=== PATIENT | female | born 1955 | race Two or more races ===

== ENCOUNTER 2019-09-12 01:36 | Inpatient (IN) | payer MEDICARE, OTHER ==
[~2019-09-12] VITALS: Ht 154.9 cm; Wt 62.8 kg
--- NOTE | 2019-09-12 01:45 | NUR ---
PT [facility] C/C CP RADIATING TO L SHOULDER AND NECK X20MIN, 0.4 NITRO AND 324 ASPIRIN GIVEN PER EMS. PT AOX4. PT ON MONITOR IN BED 4. WILL CONTINUE TO MONITOR.
--- NOTE | 2019-09-12 02:14 | NUR ---
PHLEB AT BEDSIDE FOR LAB DRAW
[2019-09-12 02:34] LABS: BASOPHILS # (AUTO) 0.1 /CMM (0.0-0.2); BASOPHILS % (AUTO) 4.7 % (0.0-2.0); EOSINOPHILS % (AUTO) 6.5 % (0.0-6.0); HEMATOCRIT 37 % (33-45); LYMPHOCYTES # (AUTO) 0.8 /CMM (0.8-4.8); LYMPHOCYTES % (AUTO) 26.2 % (20.0-44.0); MEAN CORPUSCULAR HGB CONC 30 g/dl (31.0-36.0); MEAN CORPUSCULAR VOLUME 87 fL (82-100); MONOCYTES # (AUTO) 0.4 /CMM (0.1-1.30); MONOCYTES % (AUTO) 12.7 % (2.0-12.0); NEUTROPHILS # (AUTO) 1.5 /CMM (1.8-8.9); NEUTROPHILS % (AUTO) 49.9 % (43.0-81.0); PLATELET COUNT (AUTO) 127 /CMM (150-450); RED BLOOD CELL COUNT(AUTO) 4.21 MIL/uL (4.0-5.2)
--- NOTE | 2019-09-12 02:35 | NUR ---
RADIOLOGY AT BEDSIDE FOR XRAY
[2019-09-12 02:51] LABS: CALCIUM, SERUM 9.9 mg/dL (8.5-10.1); CREATININE 4.5 mg/dL (0.6-1.3); POTASSIUM 3.7 mmol/L (3.5-5.1)
[2019-09-12 03:03] LABS: ALBUMIN 3.4 g/dL (3.4-5.0); BILIRUBIN,DIRECT 0.3 mg/dL (0.0-0.2); BILIRUBIN,TOTAL 0.6 mg/dL (0.2-1.0); TOTAL PROTEIN, SERUM 7.3 g/dL (6.4-8.2)
[2019-09-12] MEDS ORDERED: CLOPIDOGREL BISULFATE 75 MG TABLET ONE (04:27)
[2019-09-12] MEDS ORDERED: CLOPIDOGREL BISULFATE 75 MG TABLET PO ONE (04:30)
--- NOTE | 2019-09-12 04:30 | NUR ---
SPOKE WITH AMADA FROM [facility] AND INFORMED PT WILL BE ADMITTED
--- NOTE | 2019-09-12 04:52 | NUR ---
REPORT GIVEN TO MARVA HANCOCK FOR DANIAL
--- NOTE | 2019-09-12 05:07 | NUR ---
PT TRANSFERRED PER ACLS PROTOCOL
[2019-09-12 05:10] VITALS: BP 109/64
--- NOTE | 2019-09-12 05:10 | NUR ---
RN OPEN NOTES RECEIVED PATIENT FROM ER VIA PAULINA. A/OX3. PATIENT TURTLE MOUNTAIN. NO SIGNS OF DISTRESS OR DISCOMFORT. BREATHING EVEN AND UNLABORED. ON 2LPM O2 VIA NC. IV ACCESS IN LFA, PATENT AND INTACT, NO SIGNS OF REDNESS OR INFILTRATION. ORIENTED PATIENT TO UNIT AND ROOM. ATTACHED TELE MONITOR WITH AFIB 66 NOTED. BED IN LOW LOCKED POSITION WITH SIDE RAILS X2. CALL LIGHT WITHIN REACH. WILL CONTINUE TO MONITOR.
[2019-09-12] MEDS ORDERED: ACET650T10 PO (07:06)
[2019-09-12] MEDS ORDERED: METO25TA6 PO ×2 (07:06)
[2019-09-12] MEDS ORDERED: AMIN30LI27 PO (07:06)
[2019-09-12] MEDS ORDERED: CLOP75TA15 PO (07:06)
[2019-09-12] MEDS ORDERED: HYDR4TAB4 PO (07:06)
[2019-09-12] MEDS ORDERED: ZOLP5TAB2 PO (07:06)
[2019-09-12] MEDS ORDERED: LEVO112T5 PO (07:06)
[2019-09-12] MEDS ORDERED: SIMV20TA6 PO (07:06)
[2019-09-12] MEDS ORDERED: VIT1TABL46 PO (07:06)
[2019-09-12] MEDS ORDERED: INSU100I30 SQ (07:06)
[2019-09-12] MEDS ORDERED: ASCO500T9 PO (07:06)
[2019-09-12] MEDS ORDERED: INSU100V30 SUBCUT ×2 (07:06)
[2019-09-12] MEDS ORDERED: ISOS5TAB3 PO ×2 (07:06)
[2019-09-12] MEDS ORDERED: Medication Not On Formulary EA (Acetaminophen 650 MG) PO PRN (07:30)
[2019-09-12] MEDS ORDERED: ZOLPIDEM TARTRATE 5 MG TABLET PO PRN (07:30)
[2019-09-12] MEDS ORDERED: ACETAMINOPHEN 325 MG TABLET PO PRN (07:30)
[2019-09-12] MEDS ORDERED: DEXTROSE 50%-WATER 50 ML DISP.SYRIN IV PRN (07:30)
[2019-09-12] MEDS ORDERED: ONDANSETRON HCL/PF 4 MG/2 ML VIAL IVP PRN (07:30)
[2019-09-12] MEDS ORDERED: POLYETHYLENE GLYCOL 3350 17 GM POWD.PACK PO PRN (07:30)
--- NOTE | 2019-09-12 07:30 | NUR ---
RN CLOSING NOTES PATIENT RESTING COMFORTABLY IN BED, EASILY AROUSABLE. A/OX3. NO SIGNS OF DISTRESS OR DISCOMFORT. BREATHING EVEN AND UNLABORED. ON 2LPM O2 VIA NC. ON TELE MONITORING WITH AFIB 68 NOTED. IV ACCESS LFA, PATENT AND INTACT, NO SIGNS OF REDNESS OR INFILTRATION. ALL NEEDS MET. NO SIGNIFICANT CHANGES THROUGH THE NIGHT. PATIENT KEPT CLEAN DRY AND COMFORTABLE. ASSISTED WITH REPOSITIONED Q2H AND PRN. BED IN LOW LOCKED POSITION WITH SIDE RAILS X2. CALL LIGHT WITHIN REACH. ENDORSED TO AM SHIFT FOR DANIAL.
--- NOTE | 2019-09-12 07:49 | NUR ---
PIPE LINE WALKER OPENING NOTES Received patient on 3L nasal cannula, no sob noted, patient denies pain at this time and states that she has no chest pain. LFA 20 remains patent at this time. Bed at the lowest setting, call light within reach, side rails up x2.
[2019-09-12 07:58] LABS: BASOPHILS # (AUTO) 0.1 /CMM (0.0-0.2); EOSINOPHILS % (AUTO) 6.2 % (0.0-6.0); HEMATOCRIT 37 % (33-45); HEMOGLOBIN 11.1 g/dL (11.5-14.8); LYMPHOCYTES # (AUTO) 0.9 /CMM (0.8-4.8); LYMPHOCYTES % (AUTO) 29.2 % (20.0-44.0); MEAN CORPUSCULAR HGB CONC 30 g/dl (31.0-36.0); MEAN CORPUSCULAR VOLUME 87 fL (82-100); MONOCYTES # (AUTO) 0.5 /CMM (0.1-1.30); MONOCYTES % (AUTO) 16.1 % (2.0-12.0); NEUTROPHILS # (AUTO) 1.4 /CMM (1.8-8.9); NEUTROPHILS % (AUTO) 46.5 % (43.0-81.0); PLATELET COUNT (AUTO) 116 /CMM (150-450); RED BLOOD CELL COUNT(AUTO) 4.25 MIL/uL (4.0-5.2)
[2019-09-12 08:00] VITALS: BP 112/67
[2019-09-12 08:01] LABS: CALCIUM, SERUM 9.3 mg/dL (8.5-10.1); CARBON DIOXIDE 29 mmol/L (21-32); CHLORIDE 96 mmol/L (98-107); CREATININE 4.5 mg/dL (0.6-1.3); GLUCOSE 51 mg/dL (74-106); POTASSIUM 3.6 mmol/L (3.5-5.1); SODIUM SERUM 133 mmol/L (136-145); UREA NITROGEN, BLOOD 28 mg/dL (7-18)
[2019-09-12 08:07] LABS: ALANINE AMINOTRANSFERASE 8 U/L (12-78); ALBUMIN 3.1 g/dL (3.4-5.0); ALKALINE PHOSPHATASE 186 U/L (46-116); ASPARTATE AMINOTRANSFERASE 18 U/L (15-37); BILIRUBIN,TOTAL 0.5 mg/dL (0.2-1.0); LIPASE 56 U/L (73-393); MAGNESIUM 1.9 mg/dL (1.8-2.4); PHOSPHORUS 4.2 mg/dL (2.5-4.9); TOTAL PROTEIN, SERUM 6.7 g/dL (6.4-8.2)
--- NOTE | 2019-09-12 08:17 | NUR ---
RN NOTES B/S level of 44, give 2 cartons of OJ juice and dextrose. Patient a/o x4 at this time.
[2019-09-12] MEDS: BLOOD SUGAR DIAGNOSTIC 1 EACH STRIP IN SCH ×4 (08:18→21:13)
[2019-09-12] MEDS: ASCORBIC ACID 500 MG TABLET PO SCH (08:32)
[2019-09-12] MEDS: LEVOTHYROXINE SODIUM 112 MCG TABLET PO SCH (08:32)
[2019-09-12] MEDS: PANTOPRAZOLE 40 MG TABLET.DR PO SCH (08:32)
[2019-09-12] MEDS: DOCUSATE SODIUM 100 MG CAPSULE PO SCH ×2 (08:33→17:00)
[2019-09-12] MEDS: METOPROLOL TARTRATE 25 MG TABLET PO SCH ×2 (08:34→16:58)
[2019-09-12] MEDS: INSULIN GLARGINE, 100 UNIT/ML CARTRIDGE SQ SCH (08:36)
[2019-09-12 08:38] LABS: CHOLESTEROL 85 mg/dL (<200); HDL CHOLESTEROL 54 mg/dL (40-60); LDL 26 mg/dL (0-99); THYROID STIMULATING HORMONE 2.961 uIU/mL (0.358-3.74); TRIGLYCERIDES 32 mg/dL (30-150)
--- NOTE | 2019-09-12 08:45 | NUR ---
RN NOTES Blood sugar of 139 at this time. Patient able to eat breakfast at this time. Refused BP meds.
[2019-09-12] MEDS: PROSOURCE / PROSTAT (PYXIS) 30 ML UDC PO SCH ×2 (09:00→17:00)
--- NOTE | 2019-09-12 11:52 | NUR ---
RN NOTES patient refused insulin on a blood sugar of 200 at this time, stated maybe later.
[2019-09-12 12:00] VITALS: BP 118/60
--- NOTE | 2019-09-12 14:30 | NUR ---
MARVA Briseno from radiology placed an 18 gauge on patients left shoulder to be used for CT angio.
[2019-09-12] MEDS ORDERED: IOHEXOL-350 100 ML VIAL IV ONE (14:31)
[2019-09-12] MEDS ORDERED: METOPROLOL TARTRATE INJ 5 MG/5 ML AMPUL ONE (15:56)
--- NOTE | 2019-09-12 16:28 | NUR ---
RN CTCA PT TAKEN TO RADIOLOGY BY PAULINA FOR PROCEDURE. PT HARD OF HEARING, UNABLE TO FOLLOW COMMANDS. NEW IV LINE STARTED BY EZEKIEL. ATRIAL FIB WITH VARIABLE RATE 70-120. CASE DISCUSSED BY EZEKIEL WITH DR SHAH. GIVEN 2 SPRAYS OF NTG, NO METOPROLOL GIVEN ORDERED. COMPLETED STUDY. SENT BACK TO UNIT WITH MONITOR.
--- NOTE | 2019-09-12 17:36 | NUR ---
RN NOTES Patient refusing dialysis at this time
[2019-09-12] MEDS: CLOPIDOGREL BISULFATE 75 MG TABLET PO SCH (18:00)
[2019-09-12] MEDS: VIT B CMPLX 3/FA/VIT C/BIOTIN 1 TAB TABLET PO SCH (18:00)
--- NOTE | 2019-09-12 18:02 | NUR ---
RN NOTES patient refused all medications and insulin. Asked patient x3 and patient refused medications and insulin.
--- NOTE | 2019-09-12 18:40 | NUR ---
RN MS CLOSING NOTES Patient remains on 3l nasal cannula, no sob noted, patient denies pain at this time. Patient remains a/o x3 and refused medications. Asked patient 3x and still refused medications. Patient refused insulin as well, explained the benefits of insulin to the patient and stated that "she doesn't give a fuck". Patient refused HD as well, along with troponin draw from the lab. Bed at the lowest setting, call light within reach, side rails up x2. Will give report to NOC RN for DANIAL bedside.
--- NOTE | 2019-09-12 19:15 | NUR ---
RN OPENING NOTES PATIENT AWAKE SITTING IN CHAIR. A/OX3. NO SIGNS OF DISTRESS OR DISCOMFORT. BREATHING EVEN AND UNLABORED. ON 2LPM O2 VIA NC. ON TELE MONITORING WITH AFIB 98 NOTED. IV ACCESS LFA, L SHOULDER AND L UPPER ARM, PATENT AND INTACT, NO SIGNS OF REDNESS OR INFILTRATION. BED IN LOW LOCKED POSITION WITH SIDE RAILS X2. CALL LIGHT WITHIN REACH. WILL CONTINUE TO MONITOR.
[2019-09-12 20:00] VITALS: BP 128/43
[2019-09-12] MEDS: INSULIN REGULAR, HUMAN 100 UNIT/ML 3 ML VIAL SQ PRN (21:09)
[2019-09-12] MEDS: SIMVASTATIN 20 MG TABLET PO SCH (21:16)
[2019-09-13] VITALS: BP 130/67
[2019-09-13] MEDS: HYDROMORPHONE HCL 2 MG TABLET PO PRN ×2 (00:16→08:35)
[2019-09-13 06:24] LABS: BASOPHILS # (AUTO) 0.1 /CMM (0.0-0.2); BASOPHILS % (AUTO) 3.2 % (0.0-2.0); EOSINOPHILS % (AUTO) 3.9 % (0.0-6.0); HEMATOCRIT 35 % (33-45); HEMOGLOBIN 10.7 g/dL (11.5-14.8); LYMPHOCYTES # (AUTO) 0.5 /CMM (0.8-4.8); LYMPHOCYTES % (AUTO) 18.8 % (20.0-44.0); MEAN CORPUSCULAR HGB CONC 31 g/dl (31.0-36.0); MEAN CORPUSCULAR VOLUME 86 fL (82-100); MONOCYTES # (AUTO) 0.3 /CMM (0.1-1.30); MONOCYTES % (AUTO) 12.2 % (2.0-12.0); NEUTROPHILS # (AUTO) 1.7 /CMM (1.8-8.9); NEUTROPHILS % (AUTO) 61.9 % (43.0-81.0); PLATELET COUNT (AUTO) 124 /CMM (150-450); RED BLOOD CELL COUNT(AUTO) 4.04 MIL/uL (4.0-5.2); WHITE BLOOD COUNT (AUTO) 2.8 K/uL (4.3-11.0)
[2019-09-13 06:32] LABS: CALCIUM, SERUM 9.6 mg/dL (8.5-10.1); CREATININE 5.4 mg/dL (0.6-1.3)
[2019-09-13] MEDS: BLOOD SUGAR DIAGNOSTIC 1 EACH STRIP IN SCH ×4 (06:35→21:52)
--- NOTE | 2019-09-13 06:36 | NUR ---
RN CLOSING NOTES PATIENT AWAKE IN CHAIR. A/OX3. NO SIGNS OF DISTRESS OR DISCOMFORT. BREATHING EVEN AND UNLABORED. ON 2LPM O2 VIA NC. ON TELE MONITORING WITH AFIB 98 NOTED. IV ACCESS LFA, PATENT AND INTACT, NO SIGNS OF REDNESS OR INFILTRATION. ALL NEEDS MET. NO SIGNIFICANT CHANGES THROUGH THE NIGHT. PATIENT KEPT CLEAN DRY AND COMFORTABLE. ASSISTED WITH REPOSITIONED Q2H AND PRN. BED IN LOW LOCKED POSITION WITH SIDE RAILS X2. CALL LIGHT WITHIN REACH. WILL ENDORSE TO AM SHIFT FOR DANIAL.
[2019-09-13 08:00] VITALS: BP 147/58
--- NOTE | 2019-09-13 08:00 | NUR ---
HOME INSPECTOR AM NOTES PATIENT AWAKE SITTING IN CHAIR. A/OX3. NO SIGNS OF DISTRESS OR DISCOMFORT. BREATHING EVEN AND UNLABORED. ON 2LPM O2 VIA NC. ON TELE MONITORING WITH AFIB 86 NOTED. IV ACCESS LFA, L SHOULDER AND L UPPER ARM, PATENT AND INTACT, NO SIGNS OF REDNESS OR INFILTRATION. BED IN LOW LOCKED POSITION WITH SIDE RAILS X2. CALL LIGHT WITHIN REACH. WILL CONTINUE TO MONITOR.
[2019-09-13] MEDS: INSULIN GLARGINE, 100 UNIT/ML CARTRIDGE SQ SCH (09:00)
[2019-09-13] MEDS ORDERED: REGADENOSON 0.4 MG/5 ML DISP.SYRIN IVP ONE (09:00)
[2019-09-13] MEDS: METOPROLOL TARTRATE 25 MG TABLET PO SCH ×2 (09:00→17:00)
[2019-09-13] MEDS: PANTOPRAZOLE 40 MG TABLET.DR PO SCH (09:15)
[2019-09-13] MEDS: ASCORBIC ACID 500 MG TABLET PO SCH (09:15)
[2019-09-13] MEDS: DOCUSATE SODIUM 100 MG CAPSULE PO SCH ×2 (09:15→17:16)
[2019-09-13] MEDS: LEVOTHYROXINE SODIUM 112 MCG TABLET PO SCH (09:15)
[2019-09-13] MEDS: PROSOURCE / PROSTAT (PYXIS) 30 ML UDC PO SCH ×2 (09:16→17:18)
--- NOTE | 2019-09-13 09:30 | NUR ---
PT WAS BROUGHT DOWN FOR CARDIAC STRESS TEST PROCEDURE.WITH STABLE V/S.PT'S PO MEDS WILL BE GIVEN AFTER THE CARDIAC STRESS TEST PROCEDURE.
--- NOTE | 2019-09-13 11:00 | NUR ---
PT WAS BROUGHT UP FROM NUCLEAR MED FOR ECHO PROCEDURE.WILL BE BROUGHT DOWN FOR NM STRESS TEST.WITH STABLE V/S.
--- NOTE | 2019-09-13 11:30 | NUR ---
PT WAS BROUGHT DOWN AGAIN FOR THE NUCLEAR MED STRESS TEST PROCEDURE.WILL GIVE INSULIN LATER AFTER THE NM STRESS TEST PROCEDURE.
--- NOTE | 2019-09-13 11:43 | NUR ---
WOUND CARE CONSULT: PT PRESENTS WITH RASH TO SACRAL/BUTTOCKS AND PERINEAL AREAS, DUSKY COLOR TO RT FOOT, THICKENED SKIN TO BILATERAL LOWER LEGS WITH PITTING EDEMA AND DRY ESCHAR TO LEFT HEEL AND TO LEFT 4TH TOE, PRESENT ON ADMISSION. RECOMMEND DPM CONSULT. DPM CONSULT REQUESTED AND DR HARDWICK NOTIFIED. RECOMMENDATIONS MADE FOR SKIN PROTECTION AND RASH. DISCUSSED WITH NURSING STAFF. WILL SEE PRN. RENEE IN AGREEMENT WITH PLAN OF CARE. DEFER TO DPM FOR LOWER EXTREMITIES. Addendum: 09/13/19 at 1145 by NIC VERDUZCO WNDNU Amended: Links added.
[2019-09-13] MEDS ORDERED: Z GUARD REMEDY 2 OZ OINT TP PRN (12:00)
[2019-09-13] MEDS ORDERED: Z GUARD REMEDY 2 OZ OINT TP SCH (12:00)
[2019-09-13 16:00] VITALS: BP 92/53
[2019-09-13] MEDS ORDERED: CLOTRIMAZOLE 1% 15 GM TUBE TP SCH (17:00)
[2019-09-13] MEDS: VIT B CMPLX 3/FA/VIT C/BIOTIN 1 TAB TABLET PO SCH (17:16)
[2019-09-13] MEDS: CLOPIDOGREL BISULFATE 75 MG TABLET PO SCH (17:16)
[2019-09-13] MEDS: INSULIN REGULAR, HUMAN 100 UNIT/ML 3 ML VIAL SQ PRN ×2 (17:44→21:54)
--- NOTE | 2019-09-13 18:00 | NUR ---
PT WAS SEEN BY DR LEPE VASCULAR SURGEON WITH NO NEW ORDER AND JUST TO CONTINUE TO FOLLOW UP WITH PT'S VASCULAR SURGEON, DR TOLLIVER.
--- NOTE | 2019-09-13 18:07 | NUR ---
ARTERIAL DOPPLER DONE AT THIS TIME AND BROUGHT DINNER TO THE PT. WILL GIVE INSULIN SOON PT START EATING HER DINNER.DENIES ANY PAIN OR DISTRESS.CALL LIGHT PLACED WITHIN REACH.
--- NOTE | 2019-09-13 19:30 | NUR ---
RN OPENING NOTES RECEIVED PATIENT IN BED, ALERT, ORIENTED X 3, HEMODIALYSIS ON GOING. BREATHING EVEN AND UNLABORED. NOT IN ANY DISTRESS. ON SUPPLEMENTAL O2 AT 2L VIA NASAL CANNULA. NO COMPLAINTS AT THIS TIME. SAFETY MEASURES IN PLACE. CALL LIGHT WITHIN REACH. BED IN LOW, LOCKED POSITION. WILL CONTINUE TO MONITOR ACCORDINGLY
--- NOTE | 2019-09-13 19:43 | NUR ---
WARP DYEING VAT TENDEROSCAR ARRIVED TO DO HEMODIALYSIS PROCEDURE.CALLED REPORT TO MARVA VALENTE LAUNDRY MACHINE TENDER OF [facility] AND CALLED PT'S SON,DUNCAN AND MADE AWARE OF THE DISCHARGE.ENDORSED PT CARE TO NIGHT NURSE.
[2019-09-13 20:00] VITALS: BP 125/49
[2019-09-13] MEDS: SIMVASTATIN 20 MG TABLET PO SCH (21:17)
--- NOTE | 2019-09-13 22:15 | NUR ---
RN NOTES PATIENT'S DIALYSIS DONE- NO OUTPUT. BP- 114/50, HR- 76. IV ACCESS TAKEN OUT. ID BAND REMOVED. PATIENT WENT TO [facility] VIA AMBULANCE IN STABLE CONDITION
== END 2019-09-13 22:15 | DRG 302 ==
LOC: ER 01:37 → TELE 04:36
PROVIDERS: ADMIT Nurse Practitioner Acute Care
DX: I25.10 Atherosclerotic heart disease of native coronary artery without angina pectoris (principal); N18.6 End stage renal disease; I13.2 Hypertensive heart and chronic kidney disease with heart failure and with stage 5 chronic kidney disease, or end stage renal disease; D68.59 Other primary thrombophilia; E44.1 Mild protein-calorie malnutrition; E87.1 Hypo-osmolality and hyponatremia; I48.91 Unspecified atrial fibrillation; E11.22 Type 2 diabetes mellitus with diabetic chronic kidney disease; Z99.2 Dependence on renal dialysis; M81.0 Age-related osteoporosis without current pathological fracture; D63.1 Anemia in chronic kidney disease; E03.9 Hypothyroidism, unspecified; E11.51 Type 2 diabetes mellitus with diabetic peripheral angiopathy without gangrene; E11.40 Type 2 diabetes mellitus with diabetic neuropathy, unspecified; E78.5 Hyperlipidemia, unspecified; G47.00 Insomnia, unspecified; I70.0 Atherosclerosis of aorta; K21.9 Gastro-esophageal reflux disease without esophagitis; Z87.891 Personal history of nicotine dependence; Z79.02 Long term (current) use of antithrombotics/antiplatelets; I50.9 Heart failure, unspecified; R26.9 Unspecified abnormalities of gait and mobility; Z79.4 Long term (current) use of insulin; Z79.899 Other long term (current) drug therapy; Z98.890 Other specified postprocedural states; Z90.49 Acquired absence of other specified parts of digestive tract; Z74.09 Other reduced mobility
CPT/HCPCS: 36415; 71045-TC; 75574; 80048-TC; 80053-TC; 80061-TC; 80076-TC; 82962-TC; 83690-TC; 83735-TC; 83880; 84100-TC; 84443-TC; 84484-TC; 85025-TC; 85730-TC; 86704; 86705; 86706; 86803; 87081-TC; 87340; 90935-TC; 93307-TC; A9502; G0378; J1815; J2785; J3490; Q9967